=== PATIENT | male | born 1975 | race Caucasian/White ===

== ENCOUNTER → 2020-03-28 20:19 | Outpatient (REF) | payer OTHER, SELFPAY | LOC: HO.SL 20:19 | PROVIDERS: PCP Family Medicine; Visit Provider Nurse Practitioner Family | DX: G47.33 Obstructive sleep apnea (adult) (pediatric) (principal); R06.83 Snoring | CPT/HCPCS: 95810 ==

== ENCOUNTER → 2020-04-12 09:08 | Outpatient (BNVA) | payer OTHER, SELFPAY | PROVIDERS: PCP Family Medicine; Visit Provider Nurse Practitioner Family | DX: G47.33 Obstructive sleep apnea (adult) (pediatric) (principal) | CPT/HCPCS: 99212 ==

== ENCOUNTER → 2020-04-22 09:20 | Outpatient (BNVA) | payer OTHER, SELFPAY | PROVIDERS: PCP Family Medicine; Visit Provider Internal Medicine Pulmonary Disease | DX: J44.9 Chronic obstructive pulmonary disease, unspecified (principal); R06.00 Dyspnea, unspecified; I51.89 Other ill-defined heart diseases; Z79.899 Other long term (current) drug therapy | CPT/HCPCS: 99212 ==

== ENCOUNTER → 2020-09-06 09:19 | Outpatient (BNVA) | payer OTHER, SELFPAY | PROVIDERS: PCP Family Medicine; Visit Provider Nurse Practitioner Family | DX: G47.33 Obstructive sleep apnea (adult) (pediatric) (principal) | CPT/HCPCS: 99212 ==

== ENCOUNTER → 2020-11-17 09:56 | Outpatient (BNVA) | payer OTHER, SELFPAY | PROVIDERS: PCP Family Medicine; Visit Provider Internal Medicine Pulmonary Disease | DX: R06.00 Dyspnea, unspecified (principal); J44.9 Chronic obstructive pulmonary disease, unspecified | CPT/HCPCS: 99212 ==

== ENCOUNTER 2021-01-13 09:34 | Outpatient (REF) | payer OTHER, SELFPAY ==
[2021-01-13 10:43] LABS: Anion Gap 12 (12-20); Blood Urea Nitrogen 19 mg/dL (9-16); Calcium 9.1 mg/dL (8.4-10.2); Carbon Dioxide 27 mmol/L (22-29); Chloride 101 mmol/L (96-108); Estimated Glomerular Filt Rate 60; Glucose Random 296 mg/dL (60-115); Potassium 4.3 mmol/L (3.3-5.1); Sodium 136 mmol/L (135-145)
== END 2021-01-13 09:35 | disposition home or self-care (01) ==
LOC: HO.LAB 09:34
PROVIDERS: PCP Family Medicine; Visit Provider Family Medicine
DX: Z00.00 Encounter for general adult medical examination without abnormal findings (principal)
CPT/HCPCS: 36415; 80048

== ENCOUNTER 2021-01-19 10:55 | Outpatient (REF) | payer OTHER, SELFPAY ==
[2021-01-19 14:01] LABS: Estimated Average Glucose 197 mg/dL; Hemoglobin A1c % 8.5 %
[2021-01-19 14:21] LABS: Anion Gap 11 (12-20); Blood Urea Nitrogen 13 mg/dL (9-16); Calcium 8.8 mg/dL (8.4-10.2); Carbon Dioxide 27 mmol/L (22-29); Chloride 105 mmol/L (96-108); Estimated Glomerular Filt Rate > 60; Glucose Fasting 176 mg/dL (60-99); Potassium 4.4 mmol/L (3.3-5.1); Sodium 139 mmol/L (135-145)
== END 2021-01-19 10:56 | disposition home or self-care (01) ==
LOC: HO.WFDLDS 10:55
PROVIDERS: Visit Provider Family Medicine
DX: R73.01 Impaired fasting glucose (principal); R73.09 Other abnormal glucose
CPT/HCPCS: 36415; 80048; 83036

== ENCOUNTER → 2021-03-22 09:48 | Outpatient (BNVA) | payer OTHER, SELFPAY | PROVIDERS: PCP Family Medicine; Visit Provider Internal Medicine Pulmonary Disease | DX: J44.9 Chronic obstructive pulmonary disease, unspecified (principal); R06.00 Dyspnea, unspecified; Z87.891 Personal history of nicotine dependence | CPT/HCPCS: 99212 ==

== ENCOUNTER → 2021-07-13 09:50 | Outpatient (BNVA) | payer OTHER, SELFPAY | PROVIDERS: PCP Family Medicine; Visit Provider Internal Medicine Pulmonary Disease | DX: J44.9 Chronic obstructive pulmonary disease, unspecified (principal); R06.00 Dyspnea, unspecified; I51.89 Other ill-defined heart diseases; Z79.899 Other long term (current) drug therapy | CPT/HCPCS: 99212 ==

== ENCOUNTER → 2021-10-19 10:02 | Outpatient (BNVA) | payer OTHER, SELFPAY | PROVIDERS: PCP Family Medicine; Visit Provider Internal Medicine Pulmonary Disease | DX: J44.9 Chronic obstructive pulmonary disease, unspecified (principal); R60.0 Localized edema | CPT/HCPCS: 99212 ==

== ENCOUNTER → 2022-01-09 09:29 | Outpatient (BNVA) | payer OTHER, SELFPAY | PROVIDERS: PCP Family Medicine; Visit Provider Surgery Vascular Surgery | DX: I83.11 Varicose veins of right lower extremity with inflammation (principal) | CPT/HCPCS: 99202 ==

== ENCOUNTER 2022-02-28 08:22 | Outpatient (REF) | payer OTHER, SELFPAY ==
--- NOTE | ~2022-02-28 | US_ITS ---
EXAMINATION: US LOWER EXTREMITY VENOUS (REFLUX EXAM), BILATERAL CLINICAL INDICATION: Chronic venous insufficiency with lower extremity varicose veins COMPARISON: None. TECHNIQUE: Color flow triplex imaging and compression Doppler was performed to evaluate both the deep and the superficial systems bilaterally. To evaluate the superficial system, the examination was performed in the upright position. Color-flow Doppler ultrasound and compression ultrasound were utilized. In addition, maneuvers were utilized to demonstrate reflux. FINDINGS: 1. DEEP VENOUS ULTRASOUND OF THE RIGHT LOWER EXTREMITY: Common Femoral Vein: Compressible, normal respiratory variation and augmented flow. Femoral Vein: Compressible, normal color flow and augmentation. Popliteal Vein: Compressible, normal augmentation. Deep Reflux: There is no evidence of reflux in the deep system in either the common femoral vein or the popliteal vein. There is no evidence of a Brown's cyst. 2. SUPERFICIAL ULTRASOUND WITH DOPPLER OF RIGHT LOWER EXTREMITY: GREAT SAPHENOUS VEIN: Saphenofemoral Junction: 0.8 cm; Reflux: 0 ms Proximal Thigh: 0.6 cm; Reflux: 0 ms Mid Thigh: 0.6 cm; Reflux: 0 ms Above Knee: 0.7 cm; Reflux: 0 ms At Knee: 0.6 cm; Reflux: 0 ms Below Knee: 0.6 cm; Reflux: 0 ms Mid Calf: 0.4 cm; Reflux: 2288 ms Ankle: 0.3 cm; Reflux: 0 ms DUPLICATED MEDIAL GREAT SAPHENOUS VEIN: Diameter: 0.5 cm Reflux: None DUPLICATED LATERAL GREAT SAPHENOUS VEIN: Diameter: None Imaged Reflux: NA SMALL SAPHENOUS VEIN: Proximal: 0.4 cm; Reflux: 0 ms Distal: 0.4 cm; Reflux: 0 ms VEIN OF GIACOMINI: None Imaged. PERFORATORS: Location: None significant Size: NA Reflux: NA VARICOSITIES: Location: Proximal thigh, distal thigh, proximal calf and distal calf Size: 0.3 to 0.4 cm Reflux: None 3. DEEP VENOUS ULTRASOUND OF THE LEFT LOWER EXTREMITY: Common Femoral Vein: Compressible, normal respiratory variation and augmented flow. Femoral Vein: Compressible, normal color flow and augmentation. Popliteal Vein: Compressible, normal augmentation. Deep Reflux: There is no evidence of reflux in the deep system in either the common femoral vein or the popliteal vein. There is no evidence of a Brown's cyst. 4. SUPERFICIAL ULTRASOUND WITH DOPPLER OF LEFT LOWER EXTREMITY: GREAT SAPHENOUS VEIN: Saphenofemoral Junction: 0.8 cm; Reflux: 0 ms Proximal Thigh: 0.5 cm; Reflux: 0 ms Mid Thigh: 0.6 cm; Reflux: 0 ms Above Knee: 0.6 cm; Reflux: 0 ms At Knee: 0.6 cm; Reflux: 0 ms Below Knee: 0.6 cm; Reflux: 0 ms Mid Calf: 0.3 cm; Reflux: 0 ms Ankle: 0.3 cm; Reflux: 0 ms DUPLICATED MEDIAL GREAT SAPHENOUS VEIN: Diameter: 0.4 cm Reflux: None DUPLICATED LATERAL GREAT SAPHENOUS VEIN: Diameter: 0.6 cm Reflux: None SMALL SAPHENOUS VEIN: Proximal: 0.3 cm; Reflux: 0 ms Distal: 0.3 cm; Reflux: 0 ms VEIN OF GIACOMINI: None Imaged. PERFORATORS: Location: None significant Size: NA Reflux: NA VARICOSITIES: Location: Anterior knee and calf Size: 0.3 cm Reflux: None US/US venous duplex LE BI IMPRESSION: Right: Focal reflux in the right great saphenous vein in the mid calf. Greater saphenous vein is diffusely dilated without significant reflux otherwise. There are multiple varicose veins in the thigh and calf without reflux Left: No significant reflux in the left great saphenous vein or small saphenous vein. Multiple varicose veins in the left knee and calf without significant reflux
== END 2022-02-28 08:23 | disposition home or self-care (01) ==
LOC: HO.US 08:22
PROVIDERS: Visit Provider Surgery Vascular Surgery
DX: I83.11 Varicose veins of right lower extremity with inflammation (principal)
CPT/HCPCS: 93970

== ENCOUNTER → 2022-03-27 11:36 | Outpatient (BNVA) | payer OTHER, SELFPAY | PROVIDERS: PCP Family Medicine; Visit Provider Surgery Vascular Surgery | DX: I89.0 Lymphedema, not elsewhere classified (principal); I83.11 Varicose veins of right lower extremity with inflammation | CPT/HCPCS: 99212 ==

== ENCOUNTER 2022-08-29 09:57 | Outpatient (REF) | payer OTHER, SELFPAY ==
[2022-08-29 12:17] LABS: Alanine Aminotransferase 23 U/L (0-40); Alkaline Phosphatase 47 U/L (39-117); Anion Gap 10 (12-20); Aspartate Amino Transferase 20 U/L (5-37); Bilirubin Total 0.6 mg/dL (0.0-1.0); Blood Urea Nitrogen 19 mg/dL (9-16); Calcium 9.2 mg/dL (8.4-10.2); Carbon Dioxide 26 mmol/L (22-29); Chloride 108 mmol/L (96-108); Cholesterol 177 mg/dL; Estimated Glomerular Filt Rate > 60; Glucose Fasting 105 mg/dL (60-99); HDL Cholesterol 27 mg/dL; LDL Cholesterol Calculated 124 mg/dl; Potassium 3.9 mmol/L (3.3-5.1); Sodium 140 mmol/L (135-145); Total Protein 7.2 g/dL (6.5-8.0); Triglycerides 132 mg/dL
[2022-08-29 12:25] LABS: Prostate Specific Antigen Scr 0.67 ng/mL (<0.05-4.0)
== END 2022-08-29 09:58 | disposition home or self-care (01) ==
LOC: HO.WFDLDS 09:57
PROVIDERS: Visit Provider Family Medicine
DX: Z00.00 Encounter for general adult medical examination without abnormal findings (principal); Z12.5 Encounter for screening for malignant neoplasm of prostate
CPT/HCPCS: 36415; 80053; 80061; 84153; 84443

== ENCOUNTER 2022-12-10 10:36 | Outpatient (AMB) | payer OTHER, SELFPAY ==
--- NOTE | 2022-12-10 10:40 | A.OFFPC_ITS ---
Vital Signs 12/10/22 10:41 Height 5 ft 10 in Weight 346 lb 4 oz BMI 49.7 BP 128/74 Blood Pressure Location Lt brachial Position Sitting Pulse 71 Pulse Source Pulse Oximeter Pulse Oximetry (%) 96 Oxygen Delivery Method Room Air Intake Visit Reasons: follow-up diabetes and hyperlipidemia Intake Note: Patient is here to follow up on diabetes and hyperlipidemia. Allergies No Known Allergies Allergy (Verified 12/10/22 10:43) Tobacco use date assessed: 12/10/22 Dental Screening Dental Screen Date: 12/10/22 Did you have a dental visit in the last 12 months?: Yes Did you have a dental problem in the last 6 months where you did not have access to dental care?: No Was dental information given to patient?: Patient declined HPI follow-up diabetes and hyperlipidemia HPI Details 47 y/o male presents to f/u diabetes and hyperlipidemia. Had added artovastatin for LDL 124 and goal less than 100. Last A1c 09/03/22 6.6%. He is on glipizide 5mg and metformin 500mg b.i.d. A1c today 12/10/22 is 6.8%. No recent labs to review for his lipids. Blood pressure today 128/74. He is on lisinopril 10mg daily. [facility] Surgical History History of ankle surgery Family History Mother No problems noted. 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 1. Little interest or pleasure in doing things: not at all 2. Feeling down, depressed, or hopeless: not at all 3. Trouble falling or staying asleep, or sleeping too much: not at all 4. Feeling tired or having little energy: not at all 5. Poor appetite or overeating: not at all 6. Feeling bad about yourself - or that you are a failure or have let yourself or your family down: not at all 7. Trouble concentrating on things, such as reading the newspaper or watching television: not at all 8. Moving or speaking so slowly that other people could have noticed. Or the opposite - being so fidgety or restless that you have been moving around a lot more than usual: not at all 9. Thoughts that you would be better off or of hurting yourself in some way: not at all Total score: 0 Source: Developed by Drs. Jayce Hernandez, Mis Kunz, Kannan Villatoro and colleagues, with an educational tennille from [employer]. Thrive Questionnaire Date Thrive assessed: 01/03/21 I am a: Patient What is your living situation today?: I have a steady place to live Within the past 12 months, did the food you bought not last and you didn't have the money to get more?: Never true Within the past 12 months, did you worry whether your food would run out before you got money to buy more?: Never true Do you have trouble paying for medicines?: No Do you have trouble getting transportation to medical appointments?: No Do you have trouble paying your heating and electricity bill?: No Do you have trouble taking care of your child, family member or friend?: No Do you have trouble with day-to-day activities such as bathing, preparing meals, shopping, managing finances, etc.?: No Are you currently unemployed and looking for a job?: No Are you interested in more education?: No AUDIT C Alcohol Use Questionnaire (AUDIT-C) 1. How often do you have a drink containing alcohol?: Monthly or less 2. How many drinks containing alcohol do you have on a typical day when you are drinking?: 1 or 2 3. How often do you have six or more drinks on one occasion?: Never Total Score: 1 ARNEL-7 AMB Questionnaire ARNEL-7 Date ARNEL - 7 assessed: 12/10/22 Feeling nervous, anxious, or on edge: 0 = Not at all Not being able to stop or control worryin = Not at all Worrying too much about different things: 0 = Not at all Trouble relaxin = Not at all Being so restless that it is hard to sit still: 0 = Not at all Becoming easily annoyed or irritable: 0 = Not at all Feeling afraid as if something awful might happen: 0 = Not at all Total ARNEL-7 score (0-4 normal; 5-9 mild; 10-14 moderate; 15-21 severe): 0 Source: Developed by Drs. Jayce Hernandez, Mis Kunz, Kannan Villatoro and colleagues, with an educational tennille from [employer]. Review of Systems Const Denies chills, Denies fatigue, Denies fever(s), Denies headache(s) and Denies weakness ENT Denies dizziness and Denies headache(s) Card Denies chest pain, Denies lightheadedness, Denies dyspnea and Denies other (Palpitations) Resp Denies cough, Denies dyspnea, Denies wheezing and Denies other ( shortness of breath) Musc Denies numbness and Denies tingling Neuro Denies dizziness, Denies headache(s), Denies numbness, Denies tingling, Denies paresthesias and Denies weakness Psych Denies anxiety and Denies depression Endo Denies fatigue Aller/Immun Denies wheezing Physical exam (Primary Care) Vital Signs: Last Vital Signs Pulse 71 12/10/22 10:41 BP 128/74 12/10/22 10:41 Pulse Ox 96 12/10/22 10:41 Oxygen Delivery Method Room Air 12/10/22 10:41 BMI result Body Mass Index 49.7 Tobacco/Smoking Status: Tobacco use Status Tobacco use date assessed 12/10/22 12/10/22 10:45 Patient Tobacco Use Status Former Tobacco user 12/10/22 10:40 e-Cigarette/Vaping Use Never Used 12/10/22 10:40 PHQ-9: PHQ-9 Score PHQ-9: Total score 0 12/10/22 11:02 Thrive Assessment: Date of Thrive Assessment Date Thrive assessed 01/03/21 12/10/22 10:40 Const General: no acute distress and well developed Nutritional Appearance: well nourished and obese morbidly obese Orientation/consciousness: patient oriented x3 HENMT Head: Yes normocephalic and Yes atraumatic Eyes General: appearance normal, both eyes and all related structures Pupils: Equal, round and reactive pupils present EOM: EOMs intact bilaterally Resp Effort & Inspection: normal respiratory effort Auscultation: clear to auscultation bilaterally Cardio Rate: regular rate Rhythm: regular rhythm Heart sounds: S1 normal heart sound present, S2 normal heart sound present, no gallops, no murmurs and no rubs Neuro General: patient oriented x3 and gait normal Cranial nerves: Yes Equal, round and reactive pupils present Psych Affect: normal affect Results AMB Hemoglobin A1c AMB Hemoglobin A1c 6.8 % Last Edit by Louisa Cervantes CMA on 12/10/22 11:04 Results Reviewed Results Reviewed: Laboratory Last Values Hgb A1c (Clinic) 6.8 % (4.0-6.0) H 12/10/22 10:58 Assessment and Plan Assessment & Plan (1) Diabetes type 2, controlled: Code(s): E11.9 - Type 2 diabetes mellitus without complications Plan: A1c has crept up again from 6.1% to 6.6% and now 6.8%. Still at goal of less than 7.0% He notes he has been eating more carbs lately. Continue current medication regimen Work at improved diabetic diet Encouraged exercise (2) Hyperlipidemia: Code(s): E78.5 - Hyperlipidemia, unspecified Plan: LDL cholesterol was 124; goal for diabetic patient is less than 100 so we started atorvastatin in August. Patient has not had his labs ordered yet but he will do so and we can follow-up by telemedicine in a few weeks to review Tolerating atorvastatin. Continue this medication (3) Hypertension: Code(s): I10 - Essential (primary) hypertension Plan: Blood pressure is controlled. Goal is less than 140/90. Continue lisinopril Orders: Orders AMB Hemoglobin A1c Today Z13.9 - Encounter for screening, unspecified Coding Level of Care Code Est Pt Level 4 (77598) Diagnoses Diabetes type 2, controlled E11.9 Hyperlipidemia E78.5 Hypertension I10
[2022-12-10 10:41] VITALS: BP 128/74; PULSE 71; O2SAT 96; BMI 49.7
== END 2022-12-10 11:15 | disposition home or self-care (01) ==
PROVIDERS: PCP Family Medicine; Visit Provider Family Medicine
DX: E11.9 Type 2 diabetes mellitus without complications (principal); E78.5 Hyperlipidemia, unspecified; I10 Essential (primary) hypertension
CPT/HCPCS: 83036; 99214

== ENCOUNTER 2022-12-18 09:39 | Outpatient (REF) | payer OTHER, SELFPAY ==
[2022-12-18 12:39] LABS: Anion Gap 11 (12-20); Blood Urea Nitrogen 18 mg/dL (9-16); Carbon Dioxide 24 mmol/L (22-29); Chloride 107 mmol/L (96-108); Cholesterol 153 mg/dL (<200); Estimated Glomerular Filt Rate > 60; Glucose Fasting 101 mg/dL (60-99); HDL Cholesterol 26 mg/dL (>40); LDL Cholesterol Calculated 105 mg/dL (<100); Potassium 3.8 mmol/L (3.3-5.1); Sodium 138 mmol/L (135-145); Triglycerides 113 mg/dL (<150)
== END 2022-12-18 09:40 | disposition home or self-care (01) ==
LOC: HO.HMGCLDS 09:39
PROVIDERS: PCP Family Medicine; Visit Provider Family Medicine
DX: Z00.00 Encounter for general adult medical examination without abnormal findings (principal); E11.9 Type 2 diabetes mellitus without complications
CPT/HCPCS: 36415; 80048; 80061

== ENCOUNTER 2022-12-24 10:25 | Outpatient (AMB) | payer OTHER, SELFPAY ==
--- NOTE | 2022-12-24 10:21 | MHC.PC.OV ---
Intake Visit Reasons: f/u labs- NEEDS PHQ-9 + THRIVE Intake Note: Patient is calling for lab results today. Allergies No Known Allergies Allergy (Verified 12/24/22 10:22) Tobacco use date assessed: 12/24/22 HPI f/u labs- NEEDS PHQ-9 + THRIVE HPI Details Telemedicine?encounter?to?follow-up?on?cholesterol. Patient?has?diabetes?and?LDL?cholesterol?was?124?and?his?HDL?was?26 Started?him?on?atorvastatin. LDL?cholesterol?has?decreased?to?105?and?HDL?decreased?to?25. Tolerating?medication?well PFSH Surgical History History of ankle surgery Family History Mother No problems noted. 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 Jayce Hernandez, Mis Kunz, Kannan Villatoro and colleagues, with an educational tennille from [employer]. Review of Systems Const Denies chills, Denies fatigue, Denies fever(s), Denies headache(s) and Denies weakness ENT Denies dizziness and Denies headache(s) Card Denies chest pain, Denies lightheadedness, Denies dyspnea and Denies other (Palpitations) Resp Denies cough, Denies dyspnea, Denies wheezing and Denies other ( shortness of breath) Musc Denies numbness and Denies tingling Neuro Denies dizziness, Denies headache(s), Denies numbness, Denies tingling, Denies paresthesias and Denies weakness Psych Denies anxiety and Denies depression Endo Denies fatigue Aller/Immun Denies wheezing Physical exam (Primary Care) Tobacco/Smoking Status: Tobacco use Status Tobacco use date assessed 12/24/22 12/24/22 10:24 Patient Tobacco Use Status Former Tobacco user 12/24/22 10:24 e-Cigarette/Vaping Use Never Used 12/24/22 10:24 Thrive Assessment: Date of Thrive Assessment Date Thrive assessed 01/03/21 12/24/22 10:24 Const Other: Telemedicine?encounter.??Audio?only.??No?exam. Telehealth Telehealth Location of provider rendering services: practice address Location of patient: other Patient Identification confirmed using: Name, : Yes Telehealth method: voice only Patient verbally consented to treatment: Yes Patient verbally consented to billing insurance company: Yes Patient informed of any privacy concerns related to visit: Yes Minutes spent on Phone/Video with Pt.: 8 Assessment and Plan Assessment & Plan (1) Hyperlipidemia: Code(s): E78.5 - Hyperlipidemia, unspecified Plan: LDL?cholesterol?is?still?slightly?above?goal?and?HDL?is?still?quite?low. Will?switch?him?from?atorvastatin?to?rosuvastatin?and?I?encouraged?exercise. He?just?received?a?90?day?refill?of?atorvastatin?so?we?can?follow-up?on?his?lipids?at?a?subsequent?visit. Medications: New rosuvastatin 20 mg PO DAILY 90 days 90 tabs 3RF Discontinued atorvastatin Discontinued Reason: Doctor's Order 20 mg PO BEDTIME 90 days 90 tabs 3RF Coding Level of Care Code Tele Est Pt Level 2 (79207) Diagnoses Hyperlipidemia E78.5
== END 2022-12-24 14:00 | disposition home or self-care (01) ==
LOC: HO.HMGFM 10:25
PROVIDERS: PCP Family Medicine; Visit Provider Family Medicine
DX: E78.5 Hyperlipidemia, unspecified (principal)
CPT/HCPCS: 99212

== ENCOUNTER 2023-04-29 10:40 | Outpatient (AMB) | payer OTHER, SELFPAY ==
[2023-04-29 10:53] VITALS: BP 116/70; PULSE 84; O2SAT 94; BMI 47.6
--- NOTE | 2023-04-29 10:53 | A.OFFPC_ITS ---
Vital Signs 04/29/23 10:53 Height 5 ft 10 in Weight 332 lb BMI 47.6 BP 116/70 Blood Pressure Location Lt brachial Position Sitting Pulse 84 Pulse Source Pulse Oximeter Pulse Oximetry (%) 94 Oxygen Delivery Method Room Air Intake Visit Reasons: Follow-up?diabetes?and?hypertension Intake Note: Patient is here to follow up on hypertesion and diabetes. Allergies No Known Allergies Allergy (Verified 04/29/23 11:01) Tobacco use date assessed: 12/24/22 HPI Follow-up?diabetes?and?hypertension HPI Details 48 y/o male presents to f/u diabetes and hypertension. A1c today 04/29/23 is 6.7%. He is on metformin 500 mg. Blood pressure today 116/70. He is on lisinopril 10mg daily PFSH Surgical History History of ankle surgery Family History Mother No problems noted. 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 1. Little interest or pleasure in doing things: not at all 2. Feeling down, depressed, or hopeless: not at all 3. Trouble falling or staying asleep, or sleeping too much: not at all 4. Feeling tired or having little energy: not at all 5. Poor appetite or overeating: not at all 6. Feeling bad about yourself - or that you are a failure or have let yourself or your family down: not at all 7. Trouble concentrating on things, such as reading the newspaper or watching television: not at all 8. Moving or speaking so slowly that other people could have noticed. Or the opposite - being so fidgety or restless that you have been moving around a lot more than usual: not at all 9. Thoughts that you would be better off or of hurting yourself in some way: not at all Total score: 0 Depression Screening Interpretation: Negative Depression Screening Done: Yes Source: Developed by Drs. Jayce Hernandez, Mis Kunz, Kannan Villatoro and colleagues, with an educational tennille from [employer]. Thrive Questionnaire Date Thrive assessed: 04/29/23 I am a: Patient What is your living situation today?: I have a steady place to live Within the past 12 months, did the food you bought not last and you didn't have the money to get more?: Never true Within the past 12 months, did you worry whether your food would run out before you got money to buy more?: Never true Do you have trouble paying for medicines?: No Do you have trouble getting transportation to medical appointments?: No Do you have trouble paying your heating and electricity bill?: No Do you have trouble taking care of your child, family member or friend?: No Do you have trouble with day-to-day activities such as bathing, preparing meals, shopping, managing finances, etc.?: No Are you currently unemployed and looking for a job?: No Are you interested in more education?: No THRIVE Score: 0 AUDIT C Alcohol Use Questionnaire (AUDIT-C) 1. How often do you have a drink containing alcohol?: Monthly or less 2. How many drinks containing alcohol do you have on a typical day when you are drinking?: 1 or 2 3. How often do you have six or more drinks on one occasion?: Never Total Score: 1 ARNEL-7 AMB Questionnaire ARNEL-7 Date ARNEL - 7 assessed: 04/29/23 Feeling nervous, anxious, or on edge: 0 = Not at all Not being able to stop or control worryin = Not at all Worrying too much about different things: 0 = Not at all Trouble relaxin = Not at all Being so restless that it is hard to sit still: 0 = Not at all Becoming easily annoyed or irritable: 0 = Not at all Feeling afraid as if something awful might happen: 0 = Not at all Total ARNEL-7 score (0-4 normal; 5-9 mild; 10-14 moderate; 15-21 severe): 0 Source: Developed by Drs. Jayce Hernandez, Mis Kunz, Kannan Villatoro and colleagues, with an educational tennille from [employer]. Review of Systems Const Denies chills, Denies fatigue, Denies fever(s), Denies headache(s) and Denies weakness ENT Denies dizziness and Denies headache(s) Card Denies dyspnea Resp Denies cough, Denies dyspnea, Denies wheezing and Denies other (shortness of breath) Musc Denies numbness and Denies tingling Neuro Denies dizziness, Denies headache(s), Denies numbness, Denies tingling and Denies weakness Psych Denies anxiety and Denies depression Endo Denies fatigue Aller/Immun Denies wheezing Physical exam (Primary Care) Vital Signs: Last Vital Signs Pulse 84 04/29/23 10:53 BP 116/70 04/29/23 10:53 Pulse Ox 94 04/29/23 10:53 Oxygen Delivery Method Room Air 04/29/23 10:53 BMI result Body Mass Index 47.6 Tobacco/Smoking Status: Tobacco use Status Tobacco use date assessed 12/24/22 04/29/23 11:04 Patient Tobacco Use Status Former Tobacco user 04/29/23 11:04 e-Cigarette/Vaping Use Never Used 04/29/23 11:04 PHQ-9: PHQ-9 Score PHQ-9: Total score 0 04/29/23 11:07 Depression Screening Interpretation: Negative Thrive Assessment: Date of Thrive Assessment Date Thrive assessed 04/29/23 04/29/23 11:07 Const General: well developed; No acute distress Nutritional Appearance: well nourished Orientation/consciousness: patient oriented x3 HENMT Head: Yes normocephalic and Yes atraumatic Eyes General: appearance normal, both eyes and all related structures Pupils: Equal, round and reactive pupils present EOM: EOMs intact bilaterally Resp Effort & Inspection: normal respiratory effort Auscultation: clear to auscultation bilaterally Cardio Rate: regular rate Rhythm: regular rhythm Heart sounds: S1 normal heart sound present, S2 normal heart sound present, no gallops, no murmurs and no rubs Neuro General: patient oriented x3 and gait normal Cranial nerves: Yes Equal, round and reactive pupils present Psych Affect: normal affect Results AMB Hemoglobin A1c AMB Hemoglobin A1c 6.7 % Last Edit by Louisa Cervantes CMA on 04/29/23 11:19 Results Reviewed Results Reviewed: Laboratory Last Values Hgb A1c (Clinic) 6.7 % (4.0-6.0) H 04/29/23 11:17 Assessment and Plan Assessment & Plan (1) Diabetes type 2, controlled: Code(s): E11.9 - Type 2 diabetes mellitus without complications Plan: A1c?6.7%?is?good?control.??Goal?is?less?than?7 Continue?current?medication Encouraged?diabetic?diet,?exercise?and?weight?loss (2) Hypertension: Code(s): I10 - Essential (primary) hypertension Plan: Blood?pressure?is?well?controlled?on?lisinopril.??Goal?is?less?than?140/90 Continue?lisinopril Encouraged?exercise?and?weight?loss (3) Hyperlipidemia: Code(s): E78.5 - Hyperlipidemia, unspecified Plan: Had?changed?atorvastatin?to?rosuvastatin?as?his?LDL?cholesterol?wa s?a?little?above?goal?of?less?than?100?for?patient?with?diabetes. He?will?get?his?labs?drawn?for?cholesterol?prior?to?his?next?visit?and?we?will?f ollow-up Orders: Orders Comprehensive [place]. Panel Fast Today E78.5 - Hyperlipidemia, unspecified, Z00.00 - Encounter for general adult medical examination without abnormal findings Prostate Specific Antigen Scr Today E78.5 - Hyperlipidemia, unspecified, Z12.5 - Encounter for screening for malignant neoplasm of prostate Microalbumin, Random (w Creat) Today E78.5 - Hyperlipidemia, unspecified, I10 - Essential (primary) hypertension TSH reflex Free T4 Today E78.5 - Hyperlipidemia, unspecified, Z00.00 - Encounter for general adult medical examination without abnormal findings Lipid Panel Today E78.5 - Hyperlipidemia, unspecified, Z00.00 - Encounter for general adult medical examination without abnormal findings Comprehensive [place]. Panel Fast 2 Months E78.5 - Hyperlipidemia, unspecified, Z00.00 - Encounter for general adult medical examination without abnormal findings Lipid Panel 2 Months E78.5 - Hyperlipidemia, unspecified, Z00.00 - Encounter for general adult medical examination without abnormal findings UA and rflx microscopic Today E78.5 - Hyperlipidemia, unspecified, Z00.00 - Encounter for general adult medical examination without abnormal findings AMB Hemoglobin A1c Today Z13.9 - Encounter for screening, unspecified Coding Level of Care Code Est Pt Level 3 (51537) Diagnoses Diabetes type 2, controlled E11.9 Hypertension I10 Hyperlipidemia E78.5
== END 2023-04-29 11:30 | disposition home or self-care (01) ==
PROVIDERS: PCP Family Medicine; Visit Provider Family Medicine
DX: E11.69 Type 2 diabetes mellitus with other specified complication (principal); I10 Essential (primary) hypertension; E78.5 Hyperlipidemia, unspecified
CPT/HCPCS: 83036; 99213

== ENCOUNTER 2023-09-03 08:08 | Outpatient (REF) | payer OTHER, SELFPAY ==
[2023-09-03 11:38] LABS: Appearance Urine Clear; Color Urine Yellow; Glucose Urine UA Negative (Negative); Leukocyte Esterase Urine Negative (Negative); Nitrite Urine Negative (Negative); PH 6.5 (5.0-9.0); Urine Blood Negative (Negative); Urine Ketones Negative (Negative); Urine Protein Negative (Neg-Trace)
[2023-09-03 12:27] LABS: Alanine Aminotransferase 17 U/L (0-40); Albumin Level 3.8 g/dL (3.5-5.0); Alkaline Phosphatase 49 U/L (39-117); Anion Gap 10 (12-20); Aspartate Amino Transferase 18 U/L (5-37); Bilirubin Total 0.4 mg/dL (0.0-1.0); Blood Urea Nitrogen 17 mg/dL (9-16); Calcium 9.1 mg/dL (8.4-10.2); Carbon Dioxide 26 mmol/L (22-29); Chloride 109 mmol/L (96-108); Cholesterol 173 mg/dL (<200); Estimated Glomerular Filt Rate > 60; Glucose Fasting 112 mg/dL (60-99); HDL Cholesterol 26 mg/dL (>40); LDL Cholesterol Calculated 124 mg/dL (<100); Potassium 4.2 mmol/L (3.3-5.1); Sodium 141 mmol/L (135-145); Total Protein 6.9 g/dL (6.5-8.0); Triglycerides 119 mg/dL (<150)
[2023-09-03 12:42] LABS: Prostate Specific Antigen Scr 0.67 ng/mL (<0.05-4.0)
[2023-09-03 12:45] LABS: Creatinine Urine 115.59 mg/dL; Microalbum/Creatinine Ratio Ur 5.1 ug/mg cr (<30)
[2023-09-03 12:46] LABS: TSH reflex Free T4 0.74 uIU/mL (0.32-4.0)
== END 2023-09-03 08:09 | disposition home or self-care (01) ==
LOC: HO.WFDLDS 08:08
PROVIDERS: Visit Provider Family Medicine
DX: Z00.00 Encounter for general adult medical examination without abnormal findings (principal); E78.5 Hyperlipidemia, unspecified; I10 Essential (primary) hypertension; Z12.5 Encounter for screening for malignant neoplasm of prostate
CPT/HCPCS: 36415; 80053; 80061; 81003; 82043; 82570; 84153; 84443

== ENCOUNTER 2023-09-05 08:56 | Outpatient (AMB) | payer OTHER, SELFPAY ==
--- NOTE | 2023-09-05 09:04 | MHC.PC.OV ---
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 A1c?today?shows?improvement?from?6.7%?to?6.5%. Had?changed?atorvastatin?to?rosuvastatin?but?LDL?cholesterol?is?not?at?goal. HDL?still?low?and?he?notes?that?he?could?increase?his?exercise?considerably. Has?never?had?a?colonoscopy [facility] Medical History (Updated 09/05/23 @ 09:10 by LYRIC Murillo) No pertinent past medical history Surgical History History of ankle surgery Family History Mother No problems noted. 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 1. Little interest or pleasure in doing things: not at all 2. Feeling down, depressed, or hopeless: not at all 3. Trouble falling or staying asleep, or sleeping too much: not at all 4. Feeling tired or having little energy: not at all 5. Poor appetite or overeating: not at all 6. Feeling bad about yourself - or that you are a failure or have let yourself or your family down: not at all 7. Trouble concentrating on things, such as reading the newspaper or watching television: not at all 8. Moving or speaking so slowly that other people could have noticed. Or the opposite - being so fidgety or restless that you have been moving around a lot more than usual: not at all 9. Thoughts that you would be better off or of hurting yourself in some way: not at all Total score: 0 Depression Screening Interpretation: Negative Depression Screening Done: Yes 36919 - PHQ-9 Billing: Yes Source: Developed by Drs. Jayce Hernandez, Mis Kunz, Kannan Villatoro and colleagues, with an educational tennille from [employer] Thrive Questionnaire Date Thrive assessed: 09/05/23 I am a: Patient What is your living situation today?: I have a steady place to live Within the past 12 months, did the food you bought not last and you didn't have the money to get more?: Never true Within the past 12 months, did you worry whether your food would run out before you got money to buy more?: Never true Do you have trouble paying for medicines?: No Do you have trouble getting transportation to medical appointments?: No Do you have trouble paying your heating and electricity bill?: No Do you have trouble taking care of your child, family member or friend?: No Do you have trouble with day-to-day activities such as bathing, preparing meals, shopping, managing finances, etc.?: No Are you currently unemployed and looking for a job?: No Are you interested in more education?: No Please select the resources that you would like help with: None Currently or been in a relationship where the following occur: no concerns reported THRIVE Score: 0 AUDIT C Alcohol Use Questionnaire (AUDIT-C) 1. How often do you have a drink containing alcohol?: Monthly or less 2. How many drinks containing alcohol do you have on a typical day when you are drinking?: 1 or 2 3. How often do you have six or more drinks on one occasion?: Never Total Score: 1 ARNEL-7 AMB Questionnaire ARNEL-7 Date ARNEL - 7 assessed: 09/05/23 Feeling nervous, anxious, or on edge: 0 = Not at all Not being able to stop or control worryin = Not at all Worrying too much about different things: 0 = Not at all Trouble relaxin = Not at all Being so restless that it is hard to sit still: 0 = Not at all Becoming easily annoyed or irritable: 0 = Not at all Feeling afraid as if something awful might happen: 0 = Not at all Total ARNEL-7 score (0-4 normal; 5-9 mild; 10-14 moderate; 15-21 severe): 0 Source: Developed by Drs. Jayce Hernandez, Mis Kunz, Kannan Villatoro and colleagues, with an educational tennille from [employer] ARNEL-7 Assessment Billing ARNLE-7 Assessment Tool: ARNEL-7 Assessment 31968 Review of Systems Const Details: Review of Systems Const Denies?chills,?Denies?fatigue,?Denies?fever(s),?Denies?headache(s) and?Denies?weakness Eyes Denies?change in vision ENT Denies?dizziness,?Denies?headache(s),?Denies?hearing loss,?Denies?nasal congestion,?Denies?sinus pain,?Denies?sinus pressure and?Denies?sore throat Card Denies?chest pain,?Denies?lightheadedness,?Denies?dyspnea and?Denies?other (palpitations) Resp Denies?cough,?Denies?dyspnea and?Denies?wheezing GI Denies?abdominal pain,?Denies?melena,?Denies?hematochezia,?Denies?change in bowel habits,?Denies?dyspepsia and?Denies?nausea Denies?hematuria and?Denies?dysuria Musc Denies?abnormal gait,?Denies?myalgias,?Denies?arthralgias,?Denies?numbness and?Denies?tingling Skin/Breast Denies?rash,?Denies?unusual bruising and?Denies?wounds Neuro Denies?abnormal gait,?Denies?dizziness,?Denies?headache(s),?Denies?memory loss,?Denies?numbness,?Denies?Sensory deficit (Neuro),?Denies?tingling and?Denies?weakness Psych Denies?anxiety,?Denies?depression and?Denies?memory loss Endo Denies?cold intolerance,?Denies?fatigue,?Denies?heat intolerance,?Denies?polydipsia and?Denies?polyuria Khadar/Lymph Denies?easy bleeding and?Denies?easy bruising Aller/Immun Denies?wheezing Physical exam (Primary Care) Vital Signs: Last Vital Signs Temp 97.5 F 09/05/23 09:05 Pulse 81 09/05/23 09:05 Resp 14 09/05/23 09:05 BP 116/68 09/05/23 09:05 Pulse Ox 92 09/05/23 09:05 Oxygen Delivery Method Room Air 09/05/23 09:05 BMI result Body Mass Index 47.8 Tobacco/Smoking Status: Tobacco use Status Tobacco use date assessed 09/05/23 09/05/23 09:11 Patient Tobacco Use Status Former Tobacco user 09/05/23 09:11 e-Cigarette/Vaping Use Never Used 09/05/23 09:11 PHQ-9: PHQ-9 Score PHQ-9: Total score 0 09/05/23 09:11 Depression Screening Interpretation: Negative Thrive Assessment: Date of Thrive Assessment Date Thrive assessed 09/05/23 09/05/23 09:11 Currently or been in a relationship where the following occur: no concerns reported Const Other: Physical Exam Const General:?no acute distress, well developed, alert and awake Nutritional Appearance:?well nourished Orientation/consciousness:?patient oriented x3 [facility] Head:?Yes?normocephalic and?Yes?atraumatic Ears:?hearing grossly normal bilaterally and TM's normal bilaterally General nose exam:?Normal external nose present and Normal nares present Mouth:?Normal oral and palatal mucosa present and moist mucous membranes Teeth and gingiva:?dentition normal Throat:?Yes?posterior oropharynx normal Eyes Pupils:?Equal, round and reactive pupils present and Pupil accommodation reflex normal EOM:?EOMs intact bilaterally Neck Neck:?Yes?normal visual inspection,?Yes?no lymphadenopathy and?Yes?trachea midline Thyroid:?Thyroid normal Carotids:?no bruits Lymphatic:?no lymphadenopathy noted Chest Chest palpation & inspection:?normal inspection of the chest Resp Effort & Inspection:?normal respiratory effort Auscultation:?clear to auscultation bilaterally Cardio Rate:?regular rate Rhythm:?regular rhythm Heart sounds:?S1 normal heart sound present, S2 normal heart sound present, no gallops, no murmurs and no rubs Bruits:?no abdominal aortic bruits and no carotid bruits GI Palpation (GI):?No?Abdominal aortic bruit present, Soft to palpation, nontender, No hepatosplenomegaly present and?No?Rebound tenderness present Auscultation:?normal bowel sounds General:?Yes?no CVA tenderness Back/Spine/Pelvis Back:?no CVA tenderness Cervical Spine:?cervical ROM normal and?No?Cervical spine tenderness Thoracic/Lumbar Spine:?thoraco-lumbar ROM normal,?No?pain with thoraco-lumbar ROM,?No?thoracic spinal tenderness and?No?lumbar spinal tenderness Skin Lesions:?no lesions Rashes:?no rashes Trauma:?no lacerations or abrasions Wounds:?no wounds Nails:?normal Neuro General:?patient oriented x3, gait normal and CN's II-XI intact bilaterally Cranial nerves:?Yes?Equal, round and reactive pupils present Cognition (Neuro):?normal cognition Gait exam (Neuro):?Normal gait present Motor exam (neuro):?5/5 motor strength present throughout Sensory Exam:?No?Sensory deficit (Neuro) Deep tendon reflexes (DTR's):?Right patellar reflex intensity grade:?2+ and?Left patellar reflex intensity grade:?2+ Extrem General:?1+ edema?bilaterally Psych Appearance:?grossly normal Affect:?normal affect Attitude:?cooperative Thought process:?Normal thought process present Results AMB Hemoglobin A1c AMB Hemoglobin A1c 6.5 % Last Edit by LYRIC Murillo on 09/05/23 09:37 Assessment and Plan Assessment & Plan (1) Diabetes type 2, uncontrolled: Code(s): E11.65 - Type 2 diabetes mellitus with hyperglycemia Plan: A1c?improved?from?6.7%?to?6.5%.??Good?control.??Goal?is?less?than?7.0% Continue?current?medication?regimen?and?continue?working?at?good?diabetic?diet Increase?exercise (2) Lymphedema: Code(s): I89.0 - Lymphedema, not elsewhere classified Plan: 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 (4) Screening for colon cancer: Code(s): Z12.11 - Encounter for screening for malignant neoplasm of colon Plan: Patient?has?never?had?a?colonoscopy Referred?to?GI (5) Screening for prostate cancer: Code(s): Z12.5 - Encounter for screening for malignant neoplasm of prostate Plan: PSA?is?within?normal?limits (6) Adult general medical examination: Code(s): Z00.00 - Encounter for general adult medical examination without abnormal findings Plan: 48-year-old?male?presents?for?an?extended?exam Encouraged?healthy?diet?with?active?lifestyle?and?plenty?of?exercise Will?get?EKG?as?baseline?at?next?visit Orders: Orders AMB Hemoglobin A1c Today E11.65 - Type 2 diabetes mellitus with hyperglycemia AMB EKG-In Office Today Z00.00 - Encounter for general adult medical examination without abnormal findings Referrals Gastroenterology Referral Z12.11 - Encounter for screening for malignant neoplasm of colon Medications: Changed From Incruse Ellipta 62.5 mcg/actuation (umeclidinium) 1 inh inhalation DAILY 30 ea 6RF NS J44.9 - Chronic obstructive pulmonary disease, unspecified To Incruse Ellipta 62.5 mcg/actuation (umeclidinium) 1 inh inhalation DAILY 30 days 30 ea 6RF NS J44.9 - Chronic obstructive pulmonary disease, unspecified From albuterol sulfate 90 mcg/actuation (Ventolin HFA) 2 puffs inhalation Q4-6H PRN 8.5 grams 3RF shortness of breath or wheezing Z12.11 - Encounter for screening for malignant neoplasm of colon To albuterol sulfate 90 mcg/actuation (Ventolin HFA) 2 puffs inhalation Q4-6H 30 days PRN 8.5 grams 3RF shortness of breath or wheezing Z12.11 - Encounter for screening for malignant neoplasm of colon Coding Level of Care Code Est Pt Level 4 (74685) Diagnoses Diabetes type 2, uncontrolled E11.65 Lymphedema I89.0 COPD (chronic obstructive pulmonary disease) J44.9 Screening for colon cancer Z12.11 Screening for prostate cancer Z12.5 Adult general medical examination Z00.00 Additional Codes ARNEL-7 Assessment Billing - ARNEL-7 Assessment Tool: ARNEL-7 Assessment 54248 ([id number])
[2023-09-05 09:05] VITALS: BP 116/68; PULSE 81; RESP 14; TEMP 36.4; O2SAT 92; BMI 47.8
== END 2023-09-05 09:39 | disposition home or self-care (01) ==
PROVIDERS: PCP Family Medicine; Visit Provider Family Medicine
DX: Z00.00 Encounter for general adult medical examination without abnormal findings (principal); E11.65 Type 2 diabetes mellitus with hyperglycemia; J44.9 Chronic obstructive pulmonary disease, unspecified; I89.0 Lymphedema, not elsewhere classified; Z12.11 Encounter for screening for malignant neoplasm of colon; Z12.5 Encounter for screening for malignant neoplasm of prostate
CPT/HCPCS: 83036; 99396